=== PATIENT | female | born 1970 | race Caucasian/White ===

== ENCOUNTER 2018-06-27 06:27 | Observation (INO) ==
--- NOTE | 2018-06-21 14:59 | Anesthesiology Consultation ---
Date of Service June 21, 2018 Assessment & Plan (1) Encounter for pre-operative examination: Chart Review Chart Review: Acceptable Risk for Surgery and Patient NOT seen in Pre Admission Testing History Surgery Operation Date: 06/27/18 08:00 Proposed Procedures p PVC Ablation with Mapping and Anesthesia - Carolyn Randhawa DO Height/Weight Height: 5 ft 1 in Weight: 72.575 kg Allergies Allergy/AdvReac Type Severity Reaction Status Date / Time No Known Allergies Allergy Verified 06/21/18 10:40 Medications Home Medications Medication Instructions Recorded Confirmed Last Taken atenolol 50 mg PO BID 06/21/18 06/21/18 Unknown fluticasone [Flonase Allergy 2 spray INTRANASAL QAM 06/21/18 06/21/18 Unknown Relief] multivitamin 1 tab PO QAM 06/21/18 06/21/18 Unknown pantoprazole [Protonix] 40 mg PO QAM 06/21/18 06/21/18 Unknown Past Medical History Medical History Arrhythmia FREQUENT PVCS GERD (gastroesophageal reflux disease) H/O gastritis Obesity Past Family History Family History Other No pertinent family history Past Surgical History Surgical History History of breast augmentation BILATERAL WITH SILICONE IMPLANTS History of section X2 History of esophagogastroduodenoscopy (EGD) Social History Smoking Status: Former smoker Do You Dip or Chew Tobacco: No Smoking End Date: 2016 Hx Alcohol Use: Yes alcohol intake frequency: holidays/special occasions only Hx Substance Use: No substance use type: does not use Testing Electrocardiogram Date: 01/19/18 SR with occasional PVC's with ventricular escape complexes. Septal infarct, age undetermined. Chest X-Ray Date: 12/27/17 Findings: + NAD Echocardiogram Date: 12/27/17 LVEF 55-60%. No significant valvular disease. Other Testing 24 hour holter= 05/23/18= dominant rhythm sinus rhythm. very frequent PVC's. Average HR 70. Max HR 97. Min HR 50. Laboratory Results 06/08/18 WBC 7.33 H/H 13.1/40.1 PLATELETS 219 SODIUM 141 POTASSIUM 4.4 CHLORIDE 104 CO2 26 BUN 11 CREATININE 0.7 GLUCOSE 91 TSH 0.95
[~2018-06-27 06:27] MED LIST: CEFAZOLIN 1000MG 1,000 MG/7.5 ML SYR IV SCH; LR 500ML BOLUS, THEN 15ML/HR IV SCH
[2018-06-27] MEDS ORDERED: PROPOFOL IV EMULSION 10 MG/ML 100 ML VIAL IV ONE (07:26)
--- NOTE | 2018-06-27 07:47 | History & Physical Bridge Note ---
Date of Service June 27, 2018 History & Physical Bridge Note I have examined the patient, reviewed the History & Physical and in the interval since the performance of the History & Physical I have noted the following changes of clinical significance: no changes noted
[2018-06-27] MEDS ORDERED: fentaNYL citrate 100 MCG/2 ML VIAL ONE ×4 (07:51→10:20)
[2018-06-27] MEDS ORDERED: MIDAZOLAM HCL 1 MG/ML 2ML VIAL ONE ×4 (07:51→09:32)
[2018-06-27] MEDS ORDERED: ePHEDrine sulfate 50 MG/ML AMP IV PRN (08:06)
[2018-06-27] MEDS ORDERED: ATROPINE SULFATE 0.1 MG/ML 10ML SYR IV PRN (08:06)
[2018-06-27] MEDS ORDERED: HEPARIN SOD (PORCINE) 1000 UNIT/ML 10 ML VIAL ONE ×2 (08:27→09:23)
[2018-06-27] MEDS ORDERED: ePHEDrine sulfate 50 MG/ML SYR ONE (08:30)
[2018-06-27] MEDS ORDERED: PROPOFOL IV EMULSION 10 MG/ML 20 ML VIAL IV ONE (08:30)
[2018-06-27] MEDS ORDERED: LIDOCAINE HCL 2% 2 ML VIAL/AMP(20MG/ML) INFIL ONE (08:30)
[2018-06-27] MEDS ORDERED: PHENYLEPHRINE 100MCG/ML 5ML SYR ONE (08:30)
[2018-06-27] MEDS ORDERED: ISOPROTERENOL 200 MCG / 50ML D5W IV ONE (08:50)
[2018-06-27] MEDS ORDERED: HEPARIN 25000 UNIT/500 ML D5W IV ONE (09:21)
[2018-06-27] MEDS ORDERED: ONDANSETRON INJ 2 MG/ML 2 ML VIAL ONE (10:38)
--- NOTE | 2018-06-27 11:19 | Post Anesthesia Assessment ---
Date of Service June 27, 2018 Post Sedation Assessment Vital Signs Temp Pulse Resp BP Pulse Ox 06/27/18 06:48 36.4 C L 68 18 115/66 97 Recovery Score Activity: Moves 4 extremities Respiration: Deep Breath/Cough Circulation: +/-20% PreAnes Value Consciousness: Fully Awake Oxygen Saturation: > 92% On Room Air Discharge Sedation Level of Care: Fast Track Phase II Post Sedation Plan On clinical assessment, the patient appears to have tolerated the sedation without complications. Patient is recovering as anticipated. Patient will continue to be monitored by nursing and may be discharged when sedation discharge criteria are met per below protocol. Upon Completions of procedure and additional 15 minutes continue every 5 minute vital signs and the P.A.R. score; then discharge to a Phase I or Fast Track to Phase II per the following guidelines: * Discharge Patient to appropriate Phase II area if PAR is 8 or greater or return to pre- procedure baseline. The post - procedure orders will be as directed. * If PAR score is less than 8 or not return to pre-procedure baseline then patient will follow Phase I monitoring till PAR is reached for Phase II. The Phase I may be done in procedure room or may call to secure a Phase I area. * If naloxone or flumazenil are used for reversal, hold in Phase I for continued monitoring from when last reversal dose was given for a minimum of 60 minutes or longer pending the nurse and/or physician discretion of patient condition before discharge to Phase II. Please call the Sedation Physician to re-evaluate and complete post-note for discharge to Phase II area. Do NOT discharge from procedure sedation or Phase 1 until post- sedation evaluation note is complete by procedure /sedation MD Sedation Discharge Instructions to be given to the patient at discharge to home.
--- NOTE | 2018-06-27 11:22 | Operative Report ---
Post Operative Report Pre & Post Diagnosis Frequent PVCs Operation Date: 06/27/18 08:00 <No data on this case meets the specified criteria> Procedure Operation Date: 06/27/18 08:00 Actual Procedures p EPS + Ablation +3D Map for VT - Carolyn Randhawa DO Surgeon Carolyn Randhawa, Actuarial Technician none Estimated Blood Loss 5 Findings Consistent with Post-Op Diagnosis Specimens none Description of Procedure see official report I attest to the content of the Intraoperative Record and any orders documented therein. Any exceptions are noted below.
[2018-06-27] MEDS ORDERED: OXYCODONE/ACETAMINOPHEN 5mg/325mg TAB PO PRN (11:34)
--- NOTE | 2018-06-27 11:43 | Discharge Summary ---
Date of Service June 27, 2018 Admission HPI Pt admitted with palpitations and fatigue due to PVC Admission Exam Per Admitting Provider aaox3, NAD NC/AT, EOMI Supple No JVD Nrl S1/S2, No murmur, PVCs CTA b/l no w/r/r soft nt/nd no LE edema b/l skin intact no focal deficits Principal Diagnosis Principal Diagnosis [facility] Discharge Exam aaox3, NAD NC/AT, EOMI Supple No JVD Nrl S1/S2, No murmur CTA b/l no w/r/r soft nt/nd no LE edema b/l skin intact no focal deficits right femoral groin soft NT no hematoma Some PVCs on telemetry Discharge Data Allergies Allergy/AdvReac Type Severity Reaction Status Date / Time No Known Allergies Allergy Verified 06/21/18 10:40 Procedures Performed Operation Date: 06/27/18 08:00 Actual Procedures p EPS + Ablation +3D Map for VT - Carolyn Randhawa DO [facility] Hospital Course (1) PVC (premature ventricular contraction): Total Time Total Time Spent Total Time Spent (In Minutes): 30 Total Time Includes: Examination of the Patient, Discharge Planning and Medication Reconciliation Discharge Plan Discharge Items Patient Disposition: Home - Self-Care Reason For Visit: PVC ABLATION Discharge Diagnosis: PVCs originating from apical anterior wall of the RV s/p ablation Condition: Good Discharge Goals: Improve function Activity: As commented below Activity Comment: no heavy lifting or squating for 1 week Lifting: No more than 10 pounds Bathing: No limitations Sexual Activity: After one week Driving/Machine Use: Resume 1 day after discharge Non-emergency contact: Guard Captain Call non-emergency contact if: you have any medication questions Follow-up/Referrals: Mynor Israel PA [Primary Care Provider] - Diet: Regular Addtl Provider Instructions: none Prescriptions: New atenolol 25 mg Tablet 25 mg PO QAM Qty: 30 RF: 0 Continued multivitamin Tablet 1 tab PO QAM RF: 0 pantoprazole [Protonix] 40 mg Tablet,Delayed Release (Dr/Ec) 40 mg PO QAM RF: 0 fluticasone [Flonase Allergy Relief] 50 mcg/actuation [place],Suspension 2 spray INTRANASAL QAM RF: 0 polyethylene glycol 3350 [Miralax] 17 gram/dose Powder 17 g PO DAILY PRN (Reason: Constipation) RF: 0 Discontinued atenolol 50 mg Tablet 50 mg PO BID RF: 0 Stand-Alone Forms: [facility] Discharge Orders: Discharge Order (Routine); Ordered 06/28/18 Ordered By: Carolyn Randhawa Admission Data Admit Date/Time: 06/27/18 10:35 Attending Provider: Carolyn Randhawa Admit Provider: Carolyn Randhawa Primary Care Provider: Mynor Israel Service: Telemetry
[2018-06-27] MEDS ORDERED: POLYETHYLENE (MIRALAX) 17 GM PACK PO PRN (11:45)
[2018-06-27] MEDS: ACETAMINOPHEN 325 MG TAB PO PRN (22:01)
[2018-06-28] MEDS: ACETAMINOPHEN 325 MG TAB PO PRN (07:54)
[2018-06-28] MEDS ORDERED: PANTOprazole 40 MG TAB PO SCH (09:00)
[2018-06-28] MEDS ORDERED: ATENOLOL 25 MG TABLET PO SCH (09:00)
[2018-06-28] MEDS ORDERED: FLUTICASONE PROPIONATE NA SPR 16 GM BTL SCH (09:00)
[2018-06-28] MEDS ORDERED: MULTIVITAMIN TAB PO SCH (09:00)
--- NOTE | 2018-06-28 11:01 | Anesthesiology Progress Note ---
Date of Service June 28, 2018 Anesthesia Post Procedure Vital Signs Vital Signs: Temp Pulse Pulse Resp BP BP Pulse Ox 06/28/18 08:58 36.7 C 65 16 100/63 110/71 94 06/28/18 07:14 36.7 C 65 16 110/71 94 06/28/18 03:28 36.7 C 64 16 104/69 93 06/27/18 23:13 36.7 C 60 18 100/49 L 95 06/27/18 19:14 37.0 C 74 18 105/66 95 06/27/18 15:12 36.5 C 61 16 101/67 95 06/27/18 14:14 62 18 100/63 97 06/27/18 13:44 58 L 18 102/61 96 06/27/18 13:14 58 L 18 98/62 L 95 06/27/18 12:43 58 L 18 100/64 96 06/27/18 12:30 57 L 18 99/64 L 94 06/27/18 12:15 60 18 108/72 94 06/27/18 12:01 36.6 C 71 17 108/63 93 06/27/18 12:00 36.6 C 72 62 18 108/63 93 Notes Mental Status: alert / awake / arousable Patient Amnestic to Procedure: Yes Nausea / Vomiting: adequately controlled Pain: adequately controlled Airway Patency, RR, SpO2: stable & adequate BP & HR: stable & adequate Hydration State: stable & adequate Anesthetic Complications: no major complications apparent and Pt Satisfied with anesthetic care
--- NOTE | 2018-06-29 08:29 | Operative Report ---
Post Operative Report Pre & Post Diagnosis Operation Date: 06/27/18 08:00 <No data on this case meets the specified criteria> Procedure Operation Date: 06/27/18 08:00 Actual Procedures p EPS + Ablation +3D Map for VT - Carolyn Randhawa DO s Drug Stimulation(Not Applicable) - Carolyn Randhawa DO Surgeon Carolyn Randhawa DO [employer] none Estimated Blood Loss 5 I attest to the content of the Intraoperative Record and any orders documented therein. Any exceptions are noted below.
--- NOTE | 2018-07-03 16:35 | Operative Report ---
DATE OF OPERATION: 06/27/2018 PREOPERATIVE DIAGNOSIS: Premature ventricular contractions. POSTOPERATIVE DIAGNOSIS: Premature ventricular contractions originating from the apical section of the anterior wall of the right ventricle. PROCEDURE: Electrophysiology study, 3D mapping of PVCs of the right ventricle and the left ventricle, and PVC ablation. SURGEON: Carolyn Randhawa DO. PRINCIPAL CLERK TYPIST: None. ANESTHESIA: Monitored anesthetic care administered via anesthesiology. Please defer to their notes for complete details, but they gave a total of 8 mg of Versed, 400 mcg of fentanyl, 250 mg of propofol, 4 mg of Zofran. INTRAVENOUS FLUIDS: 800 mL. URINE OUTPUT: Not applicable. SPECIMENS: None. FINDINGS: See below. DRAINS: None. BLOOD LOSS: Less than 10 mL. INDICATIONS: This is a 48-year-old female who has a past medical history for fatigue, palpitations and frequent PVCs, unifocal, so she was recommended for an electrophysiology study with possible PVC ablation. CONSENT: Consent was obtained prior to the patient going into the electrophysiology lab. The patient was informed of the risks, benefits, and alternatives to the procedure. Risks include but not limited to sudden cardiac , cardiac arrhythmias, cerebrovascular accident, myocardial infarction, injury to the blood vessels, chamber of the heart or the [place] electrical system where she would need a permanent pacemaker, bleeding and infection. The patient understood these risks and agreed to the procedure as planned. Informed consent was obtained. DESCRIPTION OF THE PROCEDURE: The patient was brought into the electrophysiology lab in a fasting state. She was connected to continuous residential monitor. A timeout was performed to ensure patient's identity and procedure correctly. The patient was prepped and draped over bilateral groins in normal surgical standard fashion. Monitored anesthetic care was given throughout the procedure via anesthesiology for patient's comfort level. Lowgap precautions were maintained throughout the procedure. 10 mL of 1% lidocaine were given in the right femoral groin. Then, using the modified Seldinger technique, right femoral venous access was obtained and a 8-1/2 Wallisian sheath was inserted without any resistance. The PentaRay catheter was then advanced into the right ventricle and we did 3D mapping of the PVCs. Of note, there seemed to be slight variation in the morphology of the PVCs. We focused on mapping up in the outflow tract region and did not get anything super early and given that there was a very delayed R-S transition on the 12-lead EKG, we then opted to look at the left side. So, using the modified Seldinger technique again, I got a right femoral arterial access . Then, a bolus of IV heparin weight based was given. Then, the [employer] ThermoCool DF curved ablation catheter was inserted into the femoral artery retrograde up the aorta into the left ventricle. We did 3D mapping of the left ventricle PVCs, only to find that there was definitely nothing early so we were only in the left ventricle and the arterial side briefly. We pulled this out and then we hooked that sheath up to a pressure bag as we continued the rest of the case. I then moved back to 3D mapping of the right ventricle by putting the ablation catheter up through the femoral vein and we mapped further the PVCs down lower to the anterior wall down more towards the apex of the right ventricle, and I questioned if the PVCs were coming around a trabecula as the morphology is slightly different. We did have decent QS on our unipolars and were negative sometimes up to anywhere from 10 to 20 milliseconds and our pace maps ranged from 88%-93%. So, I gave a series of radiofrequency reis at 30 becerra in this area what I think was around the trabecula. Then, I monitored for over half an hour and she had no further PVCs. I then performed an electrophysiology study by first positioning the ablation catheter in the high right atrium and then positioned over the His bundle to get AH and HV reading and then out into the right ventricle. These were the findings of the post-ablation electrophysiology study: NE interval 122, QRS 78, QT 370. Sinus cycle length 700 milliseconds, AH interval 60 milliseconds, HV 46 milliseconds, AV Wenckebach was 330 milliseconds, the right ventricular ERP was less than or equal to the atrial ERP. At [address], the right ventricular ERP was less than or equal to the atrial ERP, but at [address], the right ventricular ERP was 400/240. The AV node ERP was less than or equal to the atrial ERP at [address], but at [address], the AV node ERP was 400/240. The atrial ERP was 600/240 and 400/210. The right ventricular ERP was 600/260 and 400/220. Again, as this is beyond over 30 minutes since my last ablation, there were no PVCs, so the catheter was removed from the body. For the right femoral artery, a Mynx was deployed to help occlude the puncture site as well as then sheath of the right femoral vein was pulled and manual compression was held on both of these puncture sites until hemostasis was established. IMPRESSION: 1. Successful suppression of premature ventricular contraction by radiofrequency ablation; PVC originating from the apical anterior wall portion of the right ventricle, thought to be around a trabecula. 2. Normal atrioventricular radha function. PLAN: Monitor the patient overnight, 12-lead ECG. She is not allowed to do any heavy lifting or squatting for 1 week. We will hold off on any beta blockers at this juncture and she will follow up with me in 1 month's time. I attest to the content of the Intraoperative Record and any orders documented therein. Any exceptions are noted below. SENA
== END 2018-06-28 09:32 | disposition home or self-care (01) ==
LOC: EP 06:27 → 2S 06:27